=== PATIENT | female | born 2000 | race Native Hawaiian/Other Pacific Islander ===

== ENCOUNTER → 2021-09-16 | Outpatient (CLI) | payer MEDICAID ==
--- NOTE | 2021-09-16 17:54 | Diagnostic Imaging Report ---
INDICATION: Anatomical survey. TECHNIQUE: Multiple real-time grayscale images were obtained over the gravid uterus. COMPARISON: None FINDINGS: The Padron viable IUP in cephalic position, placenta is anterior with no abruption or previa, the heart regular at 163 bpm. Amniotic fluid volume normal, the LUCÍA is 16.1 and the measurements correlate with an average age 22 weeks 3 days with sonographic date of delivery 01/17/2022. Nondilated cervix measures 4.9 cm and the os is 7 cm separable from the caudal tip of the anterior placenta. No abruption or previa. Anatomical survey was normal. Biometrical measurements are as follows: Biparietal 5.50 cm, age 22 weeks 6 days. Head circumference 19.64 cm, age 21 weeks 6 days. Abdominal circumference 17.15 cm, age 22 weeks 1 days. Femur length 3.86 cm, age 22 weeks 3 days. Sonographic estimate age: 22 weeks 3 days. Sonographic estimated date of delivery: 01/17/2022. Estimated Weight: 485 gm (+/- 71 gm). LMP percentile: 47%. heart rate: 163 beats per minute. number: 1 of 1. IMPRESSION: Normal anatomical survey Padron viable IUP in cephalic position measuring 22 weeks 3 days with no pathological finding identified. Dictated by: Dictated on workstation # [id number]
== END ==
LOC: RAD 13:30
PROVIDERS: ATTEND Obstetrics & Gynecology
DX: Z36.9 Encounter for antenatal screening, unspecified (principal); Z3A.22 22 weeks gestation of pregnancy
CPT/HCPCS: 76805